=== PATIENT | female | born 1955 | race Caucasian/White ===

== ENCOUNTER 2017-09-06 07:43 | Observation (INO) ==
--- NOTE | 2017-09-06 07:51 | Emergency Department Note ---
Disposition Clinical Impression: Transient ischemic attack (TIA) Disposition: Admitted As Inpatient Condition: Good Referrals: Sanju Mcgarry DO [Primary Care Provider] - Forms: ED Satisfaction Letter Time of Disposition: 09:53 Neuro HPI - General Chief Complaint: ED Neuro Symptoms/Deficit Stated Complaint: left sided N/T Time Seen by Provider: 09/06/17 07:48 Source: patient, EMS Mode of arrival: EMS Limitations: no limitations Nursing Notes Reviewed: Yes Vital Signs Reviewed: Yes - History of Present Illness HPI Narrative: Nontoxic-appearing 61-year-old female with a history of hypertension and hyperlipidemia presents for evaluation of left-sided facial numbness, and numbness/tingling/weakness of the left upper and lower extremity. She also complains of being off balance when she walks. She states that she went to head at approximately 10:30 PM yesterday evening. She states that she awoke between 4:30 and 5:00 AM to use the restroom and felt fine. Upon her awakening again at 7:00 this morning, symptoms were noticeable. She denies any previous history of symptoms such as these. She denies any falls or trauma prior to symptom onset. She denies any visual field defects or disturbances. She denies any headache. She denies any other associated complaints. Onset of Symptoms Date: 09/06/17 Onset of Symptoms Time: 05:00 Symptom Onset Unknown: No Location: left face, left arm, left leg History of same: No Severity: mild Quality: weakness, numbness Symptoms Improving: No Improves with: none Worsens with: none Context: present upon awakening On Anticoagulants: No Associated symptoms: Reports: denies other symptoms Treatments Prior to Arrival: prehospital POC glucose - Related Data Home Medications: Home Medications Medication Instructions Recorded Confirmed Atorvastatin Calcium [Lipitor] 80 mg PO HS 09/06/17 09/06/17 Lisinopril [Zestril] 40 mg PO DAILY 09/06/17 09/06/17 Omeprazole [PriLOSEC] 20 mg PO DAILY 09/06/17 09/06/17 hydroCHLOROthiazide 12.5 mg PO DAILY 09/06/17 09/06/17 [Hydrochlorothiazide] Allergies/Adverse Reactions: Allergies Allergy/AdvReac Type Severity Reaction Status Date / Time diphenhydramine Allergy Rash Verified 09/06/17 08:51 [From Benadryl] Constitutional: Denies: fever, chills, weakness, weight change Eyes: Denies: eye pain, eye discharge, vision change ENT ED: Denies: ear pain, throat pain, dental pain, hearing loss, epistaxis, congestion, dysphagia Cardiovascular: Denies: chest pain, palpitations, dyspnea on exertion, edema, syncope Respiratory: Denies: cough, dyspnea, wheezes, hemoptysis, stridor Gastrointestinal: Denies: abdominal pain, nausea, vomiting, diarrhea, constipation, hematemesis, melena, hematochezia Genitourinary: Denies: dysuria, frequency, hematuria, discharge Musculoskeletal: Denies: back pain, neck pain, arthralgia, myalgia Integumentary: Denies: rash, abrasion, lesions Neurological: Reports: as per HPI, weakness, numbness. Denies: headache, paresthesias, confusion, abnormal gait, vertigo Psychiatric: Denies: anxiety, depression, suicidal thoughts, homicidal thoughts , auditory hallucinations, visual hallucinations Endocrine: Denies: fatigue Hematological/Lymphatic: Denies: easy bleeding, easy bruising Allergic/Immunologic: Denies: facial swelling, urticaria Past Medical History - Past Medical History Attestation: Yes The following information was validated with the patient. Source: patient, nursing notes reviewed Medical history: Reports: hyperlipidemia, hypertension Surgical history: Reports: no surgical history Psychiatric history: Reports: no psych history - Social History Smoking Status: Never smoker Alcohol use: Reports: none Drug use: Reports: none Physical Exam - General Limitations: no limitations General appearance: alert, in no apparent distress - Head Head exam: atraumatic, normocephalic, normal inspection - Eye Eye exam: Present: normal appearance, PERRL, EOMI. Absent: nystagmus - Neck Neck exam: Present: normal inspection, full ROM, trachea midline - Chest Chest inspection: Present: normal inspection, symmetric chest wall rise - Respiratory Respiratory exam: Present: normal lung sounds bilaterally. Absent: respiratory distress, wheezes, stridor, accessory muscle use, prolonged expiratory phase - Cardiovascular Cardiovascular exam: Present: regular rate, normal rhythm, normal heart sounds - Abdominal Exam Abdominal exam: Present: soft, Non-Tender, normal bowel sounds - Extremities Exam Extremities exam: Present: normal inspection, full ROM. Absent: tenderness, pedal edema - Neurological Exam Neurological exam: Present: alert, oriented X3 - Expanded Neurological Exam Patient oriented to: Present: person, place, time Speech: Present: fluid speech Cranial nerves: EOM function (II, III, IV, ): Normal, facial sensation (V): Abnormal Left, facial palsy (VII): Abnormal Left, spinal accessory function (XI) : Normal, tongue deviation (XII): Normal Cerebellar function: finger to nose: Abnormal Left Motor strength - LUE: 4/5 Motor strength - RUE: 5/5 Motor strength - LLE: 4/5 Motor strength - RLE: 5/5 Sensory exam lower extremity: light touch: Abnormal Left Coma Scale Eye Opening: Spontaneous Coma Scale Motor Response: Obeys Commands Coma Scale Verbal Response: Oriented Coma Scale Total: 15 - Psychiatric Psychiatric exam: Present: normal affect, normal mood - Skin Skin exam: Present: warm, dry, intact, normal color. Absent: rash Course Course Narrative: Dr. Otoole present at bedside on this patient's arrival by EMS. 0816: Dr. Up, neurologist with the [facility] has performed his tele-stroke examination. During the examination, the patient stated that her symptoms had improved. She stated that she was no longer feeling the numbness in the left side of her face nor the numbness/weakness in the left upper or lower extremity. The neurological exam showed no ataxia with the left upper or lower extremity. No drift with the left upper or lower extremity. Dr. Up states that the patient's symptoms are consistent with a probable transient ischemic event. He recommends no TPA administration. He recommends the patient be admitted to the hospitalist service for further workup for her TIA. 0840: Repeat NIH stroke scale score of 0 at this time. 0952: I spoke with Dr. Tomas , of the hospitalist service. Dr. Tomas has accepted the patient for admission for further evaluation and observation. Vital Signs Temperature 98.3 F 09/06/17 07:46 Pulse Rate 95 09/06/17 07:46 Respiratory Rate 18 09/06/17 07:46 Blood Pressure 184/117 09/06/17 07:46 O2 Sat by Pulse Oximetry 96 09/06/17 07:46 Temperature 98.3 F 09/06/17 07:46 Pulse Rate 84 09/06/17 09:36 Respiratory Rate 15 09/06/17 09:36 Blood Pressure 173/99 09/06/17 09:36 O2 Sat by Pulse Oximetry 98 09/06/17 09:36 Oxygen Delivery Oxygen Delivery Room Air Neuro Symptoms/Deficit - Medical Records Medical records reviewed: Yes I reviewed the patient's medical records. - Lab Data Lab results reviewed: Yes I reviewed the patient's lab results. Lab results narrative: Lab Results 09/06/17 09/06/17 09/06/17 Range/Units 07:50 07:50 07:50 WBC 6.1 (4.3-11.1) K/mcL RBC 4.58 (3.82-4.97) M/mcL Hgb 14.0 (11.5-15.4) g/dL Hct 40.2 (35.3-44.9) % MCV 87.8 (83.0-100.0) fL MCH 30.6 (28.0-33.3) pg MCHC 34.8 (31.6-35.5) g/dL RDW 14.4 (11.5-14.5) % Plt Count 211 (140-400) K/mcL MPV 9.9 (9.4-12.4) fL Immature Gran % 0.3 (0-4) % Seg Neutrophils % 48.6 % Lymphocytes % 39.3 % Monocytes % 7.4 % Eosinophils % 3.6 % Basophils % 0.8 % Neutrophils # 2.9 (1.6-8.9) K/mcL Lymphocytes # 2.4 (0.6-4.6) K/mcL Monocytes # 0.5 (0.0-1.3) K/mcL Eosinophils # 0.2 (0.0-0.6) K/mcL Basophils # 0.1 (0.0-0.2) K/mcL PT 9.9 (9.4-12.1) Seconds INR 0.9 APTT 28.6 (26.0-36.0) Seconds Troponin I < 0.03 (< 0.04) ng/mL Urine Color (Yellow) Urine Clarity (Clear) Urine pH (5.0-8.0) pH Units Ur Specific Declo (1.010-1.025) Urine Protein (Neg-Trace) mg/dL Urine Glucose (UA) (Normal) mg/dL Urine Ketones (Negative) mg/dL Urine Blood (Negative) Urine Nitrite (Negative) Urine Bilirubin (Negative) Urine Urobilinogen (Normal) mg/dL Ur Leukocyte Esterase (Negative) Ur Culture Indicated? (NO) 09/06/17 Range/Units 08:20 WBC (4.3-11.1) K/mcL RBC (3.82-4.97) M/mcL Hgb (11.5-15.4) g/dL Hct (35.3-44.9) % MCV (83.0-100.0) fL MCH (28.0-33.3) pg MCHC (31.6-35.5) g/dL RDW (11.5-14.5) % Plt Count (140-400) K/mcL MPV (9.4-12.4) fL Immature Gran % (0-4) % Seg Neutrophils % % Lymphocytes % % Monocytes % % Eosinophils % % Basophils % % Neutrophils # (1.6-8.9) K/mcL Lymphocytes # (0.6-4.6) K/mcL Monocytes # (0.0-1.3) K/mcL Eosinophils # (0.0-0.6) K/mcL Basophils # (0.0-0.2) K/mcL PT (9.4-12.1) Seconds INR APTT (26.0-36.0) Seconds Troponin I (< 0.04) ng/mL Urine Color Yellow (Yellow) Urine Clarity Clear (Clear) Urine pH 7.0 (5.0-8.0) pH Units Ur Specific Declo > 1.030 H (1.010-1.025) Urine Protein Negative (Neg-Trace) mg/dL Urine Glucose (UA) Normal (Normal) mg/dL Urine Ketones Negative (Negative) mg/dL Urine Blood Negative (Negative) Urine Nitrite Negative (Negative) Urine Bilirubin Negative (Negative) Urine Urobilinogen Normal (Normal) mg/dL Ur Leukocyte Esterase Negative (Negative) Ur Culture Indicated? NO (NO) Result diagrams: 09/06/17 07:50 09/06/17 07:50 Lab Results 09/06/17 09/06/17 09/06/17 Range/Units 07:50 07:50 07:50 WBC 6.1 (4.3-11.1) K/mcL RBC 4.58 (3.82-4.97) M/mcL Hgb 14.0 (11.5-15.4) g/dL Hct 40.2 (35.3-44.9) % MCV 87.8 (83.0-100.0) fL MCH 30.6 (28.0-33.3) pg MCHC 34.8 (31.6-35.5) g/dL RDW 14.4 (11.5-14.5) % Plt Count 211 (140-400) K/mcL MPV 9.9 (9.4-12.4) fL Immature Gran % 0.3 (0-4) % Seg Neutrophils % 48.6 % Lymphocytes % 39.3 % Monocytes % 7.4 % Eosinophils % 3.6 % Basophils % 0.8 % Neutrophils # 2.9 (1.6-8.9) K/mcL Lymphocytes # 2.4 (0.6-4.6) K/mcL Monocytes # 0.5 (0.0-1.3) K/mcL Eosinophils # 0.2 (0.0-0.6) K/mcL Basophils # 0.1 (0.0-0.2) K/mcL PT 9.9 (9.4-12.1) Seconds INR 0.9 APTT 28.6 (26.0-36.0) Seconds Sodium 140 (136-145) mEq/L Potassium 3.6 (3.5-5.1) mEq/L Chloride 104 (98-107) mEq/L Carbon Dioxide 25 (23-29) mEq/L BUN 14 (8-23) mg/dL Creatinine 0.88 (0.60-1.20) mg/dL Est GFR ( Amer) > 60 (> 60) Est GFR (Non-Af Amer) > 60 (> 60) BUN/Creatinine Ratio 16 (6-26) Glucose 134 H (70-105) mg/dL Calculated Osmolality 292 (280-300) Calcium 9.6 (8.6-10.3) mg/dL Troponin I < 0.03 (< 0.04) ng/mL Urine Color (Yellow) Urine Clarity (Clear) Urine pH (5.0-8.0) pH Units Ur Specific Declo (1.010-1.025) Urine Protein (Neg-Trace) mg/dL Urine Glucose (UA) (Normal) mg/dL Urine Ketones (Negative) mg/dL Urine Blood (Negative) Urine Nitrite (Negative) Urine Bilirubin (Negative) Urine Urobilinogen (Normal) mg/dL Ur Leukocyte Esterase (Negative) Ur Culture Indicated? (NO) 09/06/17 Range/Units 08:20 WBC (4.3-11.1) K/mcL RBC (3.82-4.97) M/mcL Hgb (11.5-15.4) g/dL Hct (35.3-44.9) % MCV (83.0-100.0) fL MCH (28.0-33.3) pg MCHC (31.6-35.5) g/dL RDW (11.5-14.5) % Plt Count (140-400) K/mcL MPV (9.4-12.4) fL Immature Gran % (0-4) % Seg Neutrophils % % Lymphocytes % % Monocytes % % Eosinophils % % Basophils % % Neutrophils # (1.6-8.9) K/mcL Lymphocytes # (0.6-4.6) K/mcL Monocytes # (0.0-1.3) K/mcL Eosinophils # (0.0-0.6) K/mcL Basophils # (0.0-0.2) K/mcL PT (9.4-12.1) Seconds INR APTT (26.0-36.0) Seconds Sodium (136-145) mEq/L Potassium (3.5-5.1) mEq/L Chloride (98-107) mEq/L Carbon Dioxide (23-29) mEq/L BUN (8-23) mg/dL Creatinine (0.60-1.20) mg/dL Est GFR ( Amer) (> 60) Est GFR (Non-Af Amer) (> 60) BUN/Creatinine Ratio (6-26) Glucose (70-105) mg/dL Calculated Osmolality (280-300) Calcium (8.6-10.3) mg/dL Troponin I (< 0.04) ng/mL Urine Color Yellow (Yellow) Urine Clarity Clear (Clear) Urine pH 7.0 (5.0-8.0) pH Units Ur Specific Declo > 1.030 H (1.010-1.025) Urine Protein Negative (Neg-Trace) mg/dL Urine Glucose (UA) Normal (Normal) mg/dL Urine Ketones Negative (Negative) mg/dL Urine Blood Negative (Negative) Urine Nitrite Negative (Negative) Urine Bilirubin Negative (Negative) Urine Urobilinogen Normal (Normal) mg/dL Ur Leukocyte Esterase Negative (Negative) Ur Culture Indicated? NO (NO) - Radiology Data Radiology results reviewed: Yes I reviewed the patient's radiology results. Head CT 09/06/17 07:48 IMPRESSION: No acute intracranial abnormality. D/ / Hood Mccormick MD / Hood Mccormick MD Interpreting Provider: Hood Mccormick MD Head CTA 09/06/17 07:52 IMPRESSION: Unremarkable CTA of the head and neck. D/ / 09/06/2017 09:16:03 Checo Hunter MD / [place] Interpreting Provider: Checo Hunter MD Neck CTA 09/06/17 07:52 IMPRESSION: Unremarkable CTA of the head and neck. D/ / 09/06/2017 09:16:03 Checo Hunter MD / [place] Interpreting Provider: Checo Hunter MD - EKG Data EKG attestation: Yes I reviewed and interpreted this EKG. EKG results narrative: EKG reviewed by Dr. Otoole as well. EKG shows a sinus rhythm with left ventricular hypertrophy at a rate of 84 bpm. MS interval 156, QRS duration 101 , QT/QTc interval 33/44. No ectopy noted. No ST elevation. No old EKG for comparison. NIH Stroke Scale - Level of Consciousness LOC: Alert - LOC Questions LOC Questions: Answers both correctly - LOC Commands LOC Commands: Performs both correctly - Best Gaze Best Gaze: Normal - Visual Visual: No visual loss - Facial Palsy Facial Palsy: Minor asymmetry on smiling, flattened nasolabial fold - Motor Arms Motor Arm-Left: Drift, does NOT hit bed Motor Arm-Right: No drift for 10 seconds - Motor Legs Motor Leg-Left: Drift, does NOT hit bed Motor Leg-Right: No drift for 5 seconds - Limb Ataxia Limb Ataxia: Present in ONE limb - Sensory Sensory: Mild to moderate loss, "not as sharp" - Best Language Best Language: No aphasia - Dysarthria Dysarthria: Normal - Extinction and Inattention Extinction and Inattention: Normal - NIHSS Total Score NIHSS Total Score: 5 TPA Checklist - LKW: 3-4.5 hrs Add. Warnings/Precautions Patient/family understanding: The patient/family members have been counseled and understood the risk, benefit , and alternatives of treatment.
[2017-09-06] MEDS ORDERED: Isovue-370 500 ML INFUS..BTL IV ONE (07:52)
--- NOTE | 2017-09-06 07:52 | Emergency Department Note ---
Disposition Clinical Impression: Transient ischemic attack (TIA) Disposition: Admitted As Inpatient Condition: Good General Adult HPI - General Chief complaint: ED Neuro Symptoms/Deficit Stated complaint: left sided N/T Time Seen by Provider: 09/06/17 07:48 - Related Data Home Medications Medication Instructions Recorded Confirmed Atorvastatin Calcium [Lipitor] 80 mg PO HS 09/06/17 09/06/17 Lisinopril [Zestril] 40 mg PO DAILY 09/06/17 09/06/17 Omeprazole [PriLOSEC] 20 mg PO DAILY 09/06/17 09/06/17 hydroCHLOROthiazide 12.5 mg PO DAILY 09/06/17 09/06/17 [Hydrochlorothiazide] Allergies Allergy/AdvReac Type Severity Reaction Status Date / Time diphenhydramine Allergy Rash Verified 09/06/17 08:51 [From Benadryl] Past Medical History - Past Medical History Medical history: Reports: hyperlipidemia, hypertension Surgical history: Reports: no surgical history Psychiatric history: Reports: no psych history - Social History Smoking Status: Never smoker Alcohol use: Reports: none Drug use: Reports: none Course Vital Signs Temperature 98.3 F 09/06/17 07:46 Pulse Rate 95 09/06/17 07:46 Respiratory Rate 18 09/06/17 07:46 Blood Pressure 184/117 09/06/17 07:46 O2 Sat by Pulse Oximetry 96 09/06/17 07:46 Temperature 98.4 F 09/06/17 16:00 Pulse Rate 84 09/06/17 16:00 Respiratory Rate 15 09/06/17 16:00 Blood Pressure 156/91 09/06/17 16:00 O2 Sat by Pulse Oximetry 93 09/06/17 15:53 Oxygen Delivery Oxygen Delivery Room Air Medical Decision Making - Lab Data Result diagrams: 09/06/17 07:50 09/06/17 07:50 Lab Results 09/06/17 09/06/17 09/06/17 Range/Units 07:46 07:50 07:50 WBC 6.1 (4.3-11.1) K/mcL RBC 4.58 (3.82-4.97) M/mcL Hgb 14.0 (11.5-15.4) g/dL Hct 40.2 (35.3-44.9) % MCV 87.8 (83.0-100.0) fL MCH 30.6 (28.0-33.3) pg MCHC 34.8 (31.6-35.5) g/dL RDW 14.4 (11.5-14.5) % Plt Count 211 (140-400) K/mcL MPV 9.9 (9.4-12.4) fL Immature Gran % 0.3 (0-4) % Seg Neutrophils % 48.6 % Lymphocytes % 39.3 % Monocytes % 7.4 % Eosinophils % 3.6 % Basophils % 0.8 % Neutrophils # 2.9 (1.6-8.9) K/mcL Lymphocytes # 2.4 (0.6-4.6) K/mcL Monocytes # 0.5 (0.0-1.3) K/mcL Eosinophils # 0.2 (0.0-0.6) K/mcL Basophils # 0.1 (0.0-0.2) K/mcL PT 9.9 (9.4-12.1) Seconds INR 0.9 APTT 28.6 (26.0-36.0) Seconds Sodium (136-145) mEq/L Potassium (3.5-5.1) mEq/L Chloride (98-107) mEq/L Carbon Dioxide (23-29) mEq/L BUN (8-23) mg/dL Creatinine (0.60-1.20) mg/dL Est GFR ( Amer) (> 60) Est GFR (Non-Af Amer) (> 60) BUN/Creatinine Ratio (6-26) Glucose (70-105) mg/dL POC Glucose 122 H (70-99) mg/dL Calculated Osmolality (280-300) Calcium (8.6-10.3) mg/dL Troponin I (< 0.04) ng/mL Urine Color (Yellow) Urine Clarity (Clear) Urine pH (5.0-8.0) pH Units Ur Specific Ste[place] (1.010-1.025) Urine Protein (Neg-Trace) mg/dL Urine Glucose (UA) (Normal) mg/dL Urine Ketones (Negative) mg/dL Urine Blood (Negative) Urine Nitrite (Negative) Urine Bilirubin (Negative) Urine Urobilinogen (Normal) mg/dL Ur Leukocyte Esterase (Negative) Ur Culture Indicated? (NO) 09/06/17 09/06/17 Range/Units 07:50 08:20 WBC (4.3-11.1) K/mcL RBC (3.82-4.97) M/mcL Hgb (11.5-15.4) g/dL Hct (35.3-44.9) % MCV (83.0-100.0) fL MCH (28.0-33.3) pg MCHC (31.6-35.5) g/dL RDW (11.5-14.5) % Plt Count (140-400) K/mcL MPV (9.4-12.4) fL Immature Gran % (0-4) % Seg Neutrophils % % Lymphocytes % % Monocytes % % Eosinophils % % Basophils % % Neutrophils # (1.6-8.9) K/mcL Lymphocytes # (0.6-4.6) K/mcL Monocytes # (0.0-1.3) K/mcL Eosinophils # (0.0-0.6) K/mcL Basophils # (0.0-0.2) K/mcL PT (9.4-12.1) Seconds INR APTT (26.0-36.0) Seconds Sodium 140 (136-145) mEq/L Potassium 3.6 (3.5-5.1) mEq/L Chloride 104 (98-107) mEq/L Carbon Dioxide 25 (23-29) mEq/L BUN 14 (8-23) mg/dL Creatinine 0.88 (0.60-1.20) mg/dL Est GFR ( Amer) > 60 (> 60) Est GFR (Non-Af Amer) > 60 (> 60) BUN/Creatinine Ratio 16 (6-26) Glucose 134 H (70-105) mg/dL POC Glucose (70-99) mg/dL Calculated Osmolality 292 (280-300) Calcium 9.6 (8.6-10.3) mg/dL Troponin I < 0.03 (< 0.04) ng/mL Urine Color Yellow (Yellow) Urine Clarity Clear (Clear) Urine pH 7.0 (5.0-8.0) pH Units Ur Specific Steger > 1.030 H (1.010-1.025) Urine Protein Negative (Neg-Trace) mg/dL Urine Glucose (UA) Normal (Normal) mg/dL Urine Ketones Negative (Negative) mg/dL Urine Blood Negative (Negative) Urine Nitrite Negative (Negative) Urine Bilirubin Negative (Negative) Urine Urobilinogen Normal (Normal) mg/dL Ur Leukocyte Esterase Negative (Negative) Ur Culture Indicated? NO (NO) Attestation Statement - Attestation Attestation: For this encounter, I have reviewed the CLINICAL REVIEW SPECIALIST or PA documentation, treatment plan, and medical decision making; and I have had face to face time with this patient. Patient presents to the ED with chief complaint of left-sided weakness and numbness. Patient awoke around 7 AM and noticed left side of her face felt numb. It is also involving the left arm. She says she woke up around 4:30 or 5 this morning and went to the bathroom and felt fine at that time. Denies any headache. States she feels off balance when she walks. No history of stroke. She does have hypertension and hypercholesterolemia. Patient has a left-sided facial droop and sensory discrepancies in the left arm and face. No ataxia. Negative pronator drift. Plan. Stroke alert was called. Patient's symptoms resolved prior to telestroke evaluation. She is a presumed TIA and will be admitted for appropriate workup. Head CT 09/06/17 07:48 IMPRESSION: No acute intracranial abnormality. D/ / Hood Mccormick MD / Hood Mccormick MD Interpreting Provider: Hood Mccormick MD Head CTA 09/06/17 07:52 IMPRESSION: Unremarkable CTA of the head and neck. D/ / 09/06/2017 09:16:03 Checo Hunter MD / [place] Interpreting Provider: Checo Hunter MD Neck CTA 09/06/17 07:52 IMPRESSION: Unremarkable CTA of the head and neck. D/ / 09/06/2017 09:16:03 Checo Hunter MD / [place] Interpreting Provider: Checo Hunter MD Brain MRI 09/06/17 09:53 IMPRESSION: Moderate chronic small vessel ischemic changes. There are no areas of restricted diffusion to suggest an acute ischemic event. Mild mucoperiosteal thickening of the ethmoid air cells and maxillary sinuses. D/ / 09/06/2017 11:52:46 Heather Jenkins MD / [place] Interpreting Provider: Heather Jenkins MD
[2017-09-06 07:58] LABS: Basophils # 0.1 K/mcL (0.0-0.2); Basophils % 0.8 %; Eosinophils # 0.2 K/mcL (0.0-0.6); Eosinophils % 3.6 %; Hematocrit 40.2 % (35.3-44.9); Immature Granulocytes % 0.3 % (0-4); Lymphocytes # 2.4 K/mcL (0.6-4.6); Lymphocytes % 39.3 %; Mean Corpuscular HGB Conc 34.8 g/dL (31.6-35.5); Mean Corpuscular Hemoglobin 30.6 pg (28.0-33.3); Mean Corpuscular Volume 87.8 fL (83.0-100.0); Mean Platelet Volume 9.9 fL (9.4-12.4); Monocytes # 0.5 K/mcL (0.0-1.3); Monocytes % 7.4 %; Neutrophils # 2.9 K/mcL (1.6-8.9); Platelet Count 211 K/mcL (140-400); Red Blood Count 4.58 M/mcL (3.82-4.97); Red Cell Distribution Width 14.4 % (11.5-14.5); Segmented Neutrophils % 48.6 %
[2017-09-06 08:08] LABS: INR 0.9; Prothrombin Time 9.9 Seconds (9.4-12.1)
[2017-09-06 08:11] LABS: Activated Partial Thrombo Time 28.6 Seconds (26.0-36.0)
[2017-09-06 08:16] LABS: Troponin I < 0.03 ng/mL (< 0.04)
[2017-09-06 08:40] LABS: Bilirubin,Urine Negative (Negative); Blood,Urine Negative (Negative); Clarity,Urine Clear (Clear); Color,Urine Yellow (Yellow); Glucose,Urine (UA) Normal (Normal); Ketones,Urine Negative (Negative); Leukocyte Esterase,Urine Negative (Negative); Nitrite,Urine Negative (Negative); Protein,Urine Negative (Neg-Trace); Specific Gravity,Urine > 1.030 (1.010-1.025); Urobilinogen,Urine Normal (Normal)
[2017-09-06 09:43] LABS: BUN/Creatinine Ratio 16 (6-26); Blood Urea Nitrogen 14 mg/dL (8-23); Calcium 9.6 mg/dL (8.6-10.3); Carbon Dioxide 25 mEq/L (23-29); Chloride 104 mEq/L (98-107); Glucose 134 mg/dL (70-105); Osmolality,Calculated 292 (280-300); Potassium 3.6 mEq/L (3.5-5.1); Sodium 140 mEq/L (136-145); eGFR For Non-African Americans > 60 (> 60)
--- NOTE | 2017-09-06 12:35 | Internal Med History&Physical ---
Date of Encounter: 09/06/17 Time of Encounter: 12:30 Internal Medicine - H&P: HPI Chief complaint: left sided weakness and numbness Admitted From: Home Plans for Post Hospital Care: Home History of present illness: Ms. Crenshaw is a 61 year old female with history of hypertension and hyperlipidemia presented to the ED with left-sided facial/extremity weakness, numbness. As per patient her symptoms started at 7 AM while she was having a bowel movement. While walking from the bathroom to her bedroom she felt as though she was leaning towards her left and she had mild weakness and numbness in her left leg and left arm along with tingling on the left side of her lip. She denies any speaking difficulty blurring of the vision headache at trauma recent falls, similar episodes in the past. Since her symptoms were new to her she decided to call EMS and was brought to the ED. Her symptoms resolved while she was in the ED. as per ED documentation: "0816: Dr. Up, neurologist with the [facility] has performed his tele-stroke examination. During the examination, the patient stated that her symptoms had improved. She stated that she was no longer feeling the numbness in the left side of her face nor the numbness/weakness in the left upper or lower extremity. The neurological exam showed no ataxia with the left upper or lower extremity. No drift with the left upper or lower extremity. Dr. Up states that the patient's symptoms are consistent with a probable transient ischemic event. He recommends no TPA administration. He recommends the patient be admitted to the hospitalist service for further workup for her TIA. 0840: Repeat NIH stroke scale score of 0 at this time." Currently she has no complaints her left-sided weakness/numbness resolved. She denies any fever chills, chest pain, shortness of breath, abdominal pain, dysuria or headache or vision problems. She is compliant with her hyper pressure medications. She is not taking any aspirin at home. She is independent with all her ADLs Past Med Surg Social Fam HX - Past Medical History Medical history: hyperlipidemia, hypertension Psychiatric history: no psych history - Past Surgical History Surgical History: no surgical history - Social History Smoking Status: Never smoker Smokeless Tobacco Status: No Alcohol use: none Drug use: none - Family History Father Living Status: Age at : 91 Hx Family Neurologic Disorders: (stroke) Internal Medicine - H&P: Meds Atorvastatin Calcium [Lipitor] 80 mg PO HS 09/06/17 [History] Lisinopril [Zestril] 40 mg PO DAILY 09/06/17 [History] RX: Omeprazole [PriLOSEC] 20 mg PO DAILY 09/06/17 [History] RX: hydroCHLOROthiazide [Hydrochlorothiazide] 12.5 mg PO DAILY 09/06/17 [History ] 3 Allergy/AdvReac Type Severity Reaction Status Date / Time diphenhydramine Allergy Rash Verified 09/06/17 08:51 [From Benadryl] All Systems PM: review of systems was performed and is negative for pertinent findings except as documented above in the HPI. - Constitutional Vitals: Temp Pulse Resp BP Pulse Ox 98.6 F 89 15 169/85 98 09/06/17 11:15 09/06/17 11:15 09/06/17 11:15 09/06/17 11:15 09/06/17 11:15 - Other Additional findings: Vital Signs Reviewed General: Patient is alert, oriented, no acute distress, obese Head: atraumatic, normocephalic, Eye: normal appearance, PERRL, no scleral icterus, no conjunctival injection ENT: mucous membranes moist, normal external ear exam Neck: normal inspection, trachea midline, full ROM, no carotid bruits Chest: normal inspection, symmetric chest rise Respiratory: Good respiratory effort. Bilateral breath sounds are clear without wheezing, crackles, or rhonchi. Cardiovascular: Regular rate and rhythm. No clicks, rubs, gallops, or murmors. Normal heart sounds. Abdomen: Bowel sounds present normoactive x-4 quadrants. Abdomen is soft, nondistended. Epigastric tenderness. No guarding or rebound. No organomegaly noted, obese Musculoskeletal: Spontaneously moving all extremities. Skin: warm, dry, intact. Neuro: Alert and oriented x4. Sensation light touch intact. Cranial nerves II- 12 is intact. Not aphasic, gait is steady, rapid hand movements intact, heel to szymanski intact, [id number] intact, Psych: Patient's affect is normal Internal Med - H&P Results - Labs CBC & Chem 7: 09/06/17 07:50 09/06/17 07:50 - EKG Data EKG shows normal: axis (LAD) Rate: normal - EKG Data EKG comments: LVH 09/06/17 12:40 - Assessment and plan (1) Transient ischemic attack (TIA) Current Visit: Yes Status: Acute Assessment and plan: No TPA as symptoms rapidly improved Telemetry monitoring ASA 81 mg daily Lipitor 80 mg daily Neurology consult -Neuro check q 4 hourly MRI/ CTA head and neck were performed results above 2D ECHO with bubble study Rehab/ PT Evaluation Speech / swallow evaluation Lipid panel, HbA1C, TSH Keep systolic BP <220 and diastolic BP <120 mmHg Maintain LDL less than 75 Fall, aspiration and seizure precautions elevate head of bed (2) Hypertension Current Visit: Yes Status: Acute Assessment and plan: We will continue home medications Qualifiers: Hypertension type: essential hypertension Qualified Code(s): I10 - Essential (primary) hypertension (3) Hyperlipidemia Current Visit: Yes Status: Acute Assessment and plan: We will send lipid panel Continue Lipitor 80 mg Qualifiers: Hyperlipidemia type: unspecified Qualified Code(s): E78.5 - Hyperlipidemia , unspecified (4) Obesity (BMI 30.0-34.9) Current Visit: Yes Status: Acute Assessment and plan: Nutrition consult Was counseled on diet and nutrition (5) DVT prophylaxis Current Visit: Yes Status: Acute Assessment and plan: heparin 5000 units SC Q8H - Time Spent With Patient Total time spent is greater than 50% in coordination of care (as documented) at patient's floor/unit and/or counseling patient:
[2017-09-06] MEDS ORDERED: Saline Nasal Spray 44 ML BOTTLE NS PRN (14:38)
[2017-09-06] MEDS: Aspirin 81 MG TAB.CHEW PO SCH (15:33)
[2017-09-06] MEDS: hydroCHLOROthiazide 25 MG TABLET PO SCH (15:33)
[2017-09-06] MEDS: *HR* Heparin 5,000 UNIT/ML VIAL SQ SCH ×2 (15:34→22:10)
[2017-09-06] MEDS: Lisinopril 20 MG TABLET PO SCH (15:34)
[2017-09-06 20:37] LABS: Amphetamine Screen,Urine Negative ng/mL (Cutoff=1000); Barbiturate Screen,Urine Negative ng/mL (Cutoff=200); Benzodiazepines Screen,Urine Negative ng/mL (Cutoff=200); Cannabinoid Screen,Urine Negative ng/mL (Cutoff = 50); Cocaine Screen,Urine Negative ng/mL (Cutoff= 300); Opiate Screen,Urine Negative ng/mL (Cutoff=300); Phencyclidine Screen,Urine Negative ng/mL (Cutoff=25)
--- NOTE | 2017-09-06 21:13 | Electrocardiograph Report ---
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
[2017-09-07 05:03] LABS: Basophils % 0.5 %; Eosinophils # 0.2 K/mcL (0.0-0.6); Eosinophils % 3.4 %; Hematocrit 38.1 % (35.3-44.9); Hemoglobin 13.1 g/dL (11.5-15.4); Immature Granulocytes % 0.5 % (0-4); Lymphocytes # 1.9 K/mcL (0.6-4.6); Lymphocytes % 29.2 %; Mean Corpuscular HGB Conc 34.4 g/dL (31.6-35.5); Mean Corpuscular Hemoglobin 30.6 pg (28.0-33.3); Mean Platelet Volume 10.4 fL (9.4-12.4); Monocytes # 0.5 K/mcL (0.0-1.3); Monocytes % 7.2 %; Neutrophils # 3.9 K/mcL (1.6-8.9); Platelet Count 217 K/mcL (140-400); Red Blood Count 4.28 M/mcL (3.82-4.97); Red Cell Distribution Width 14.6 % (11.5-14.5); Segmented Neutrophils % 59.2 %
[2017-09-07 05:13] LABS: INR 0.9; Prothrombin Time 10.6 Seconds (9.4-12.1)
[2017-09-07 05:27] LABS: Alanine Aminotransferase 18 Units/L (7-52); Albumin/Globulin Ratio 1.5 (1.1-2.2); Alkaline Phosphatase 64 Units/L (34-104); Aspartate Amino Transferase 11 Units/L (13-39); BUN/Creatinine Ratio 15 (6-26); Blood Urea Nitrogen 13 mg/dL (8-23); Calcium 9.2 mg/dL (8.6-10.3); Carbon Dioxide 26 mEq/L (23-29); Chloride 103 mEq/L (98-107); Chol/HDL Ratio 4.7 (0-4.9); Cholesterol 182 mg/dL (< 200); Globulin 2.6 g/dL (2.4-3.5); Glucose 122 mg/dL (70-105); HDL Cholesterol 39 mg/dL (40-59); LDL Cholesterol,Calculated 100 mg/dL (0-99); Osmolality,Calculated 291 (280-300); Potassium 3.3 mEq/L (3.5-5.1); Sodium 140 mEq/L (136-145); Total Protein 6.6 g/dL (6.4-8.9); Triglycerides 217 mg/dL (< 150); eGFR For Non-African Americans > 60 (> 60)
[2017-09-07 05:38] LABS: Thyroid Stimulating Hormone 8.518 mcIU/mL (0.340-5.600)
[2017-09-07] MEDS: *HR* Heparin 5,000 UNIT/ML VIAL SQ SCH (06:19)
[2017-09-07] MEDS: Aspirin 81 MG TAB.CHEW PO SCH (08:17)
[2017-09-07] MEDS: hydroCHLOROthiazide 25 MG TABLET PO SCH (08:17)
[2017-09-07] MEDS: Lisinopril 20 MG TABLET PO SCH (08:18)
[2017-09-07 08:54] LABS: Estimated Average Glucose 117 mg/dl; Hemoglobin A1C 5.7 %
[2017-09-07 12:20] VITALS: BP 133/80
--- NOTE | 2017-09-07 12:53 | Neurology - Consult Note ---
Date of Encounter: 09/07/17 Time of Encounter: 12:51 Assessment and Plan (1) TIA (transient ischemic attack) Current Visit: Yes Status: Acute Patient with HTN hyperlipidemia obesity who developed transient left facial and limb numbness paresthesia lasting 2 hours with resolution. stroke/TIA work up is negative except echocardiography which is completed and result pending. Continue aspirin 81mg daily and statin therapy. Management BP. May benefit from outpatient sleep study to assess possible obstructive sleep apnea. History of Present Illness Chief complaint: left facial arm numbness HPI: Ms. Crenshaw is a 61 year old female with PMH significant for who developed acute onset of facial and left arm numbness lasting about 2 hours in duration. Symptoms started yesterday morning and by the time she arrived to the ER her symptoms started improving. She was determined not to be a tPA thrombolysis candidate due to rapid improvement of neurological status. Initial CT of head showed no acute intracranial abnormality. MRI of brain showed no acute intracranial abnormality. CTA of neck and brain showed no significant abnormality. Patient is kept on Aspirin 81mg daily. Symptoms essentially resolved at this time Past Med Surg Social Fam HX - Past Medical History Medical history: hyperlipidemia, hypertension Psychiatric history: no psych history - Past Surgical History Surgical History: no surgical history - Social History Smoking Status: Never smoker Smokeless Tobacco Status: No Alcohol use: none Drug use: none - Family History Father Living Status: Age at : 91 Hx Family Neurologic Disorders: (stroke) Medications and Allergies RX: Atorvastatin Calcium [Lipitor] 80 mg PO HS 09/06/17 [History] RX: Lisinopril [Zestril] 40 mg PO DAILY 09/06/17 [History] RX: Omeprazole [PriLOSEC] 20 mg PO DAILY 09/06/17 [History] RX: hydroCHLOROthiazide [Hydrochlorothiazide] 12.5 mg PO DAILY 09/06/17 [History ] RX: Aspirin 81 mg PO DAILY #30 tab.chew 09/07/17 [Rx] RX: amLODIPine [Norvasc] 5 mg PO DAILY #30 tablet 09/07/17 [Rx] 3 Allergy/AdvReac Type Severity Reaction Status Date / Time diphenhydramine Allergy Rash Verified 09/06/17 08:51 [From Benadryl] All Systems: The remainder of the systems were reviewed and are negative Physical Examination - Vital Signs Vital Signs: Initial Vital Signs Temp Pulse Resp BP Pulse Ox 98.3 F 95 18 184/117 96 09/06/17 07:46 09/06/17 07:46 09/06/17 07:46 09/06/17 07:46 09/06/17 07:46 - Constitutional General appearance: comfortable - Neurologic Detailed motor examination: full strength in all major muscle groups Motor examination - right side: 06/17: deltoids, biceps, triceps, wrist flexion, wrist extension, distribution sales representative, hip flexors, tibialis Anterior, quadriceps, toe extension (EHL), plantarflexion Motor examination - left side: 06/17: deltoids, biceps, triceps, wrist flexion, wrist extension, hip flexors, distribution sales representative, quadriceps, tibialis Anterior, toe extension (EHL), plantarflexion Detailed sensory examination: intact Posture: other (NOne) Reflex and gait examination: intact Reflexes: Biceps: 2+, Triceps: 2+, Brachioradialis: 2+, Patella: 2+, Achilles: 2 + Mental Status Examination: awake, alert, oriented to person, oriented to place, oriented to time, follows commands appropriately, answers questions appropriately, no agnosia, no aphasia, no aproxia Cranial nerve examination: PERRL, EOMI, visual mcgarry intact, corneal reflexes brisk symmetrically, sensory to face intact, mastication intact, no facial asymmetry is present, no dysarthria, hearing is intact symmetrically, soft palate elevates bilaterally upon phonation, gag reflex intact, flexes SCM and trapezius muscles symmetrically with full power, tongue protrudes midline, no atrophy or facial fasiculations present Cerebellar examination: no dysmetria, performs finger to nose and heel to szymanski symmetrically without ataxia, no gait ataxia, no truncal ataxia, no difficulty with rapid alternating movements Results - Laboratory Findings CBC and BMP: 09/07/17 03:51 09/07/17 03:51 Abnormal lab findings: Abnormal lab results RDW 14.6 % (11.5-14.5) H 09/07/17 03:51 Potassium 3.3 mEq/L (3.5-5.1) L 09/07/17 03:51 Glucose 122 mg/dL (70-105) H 09/07/17 03:51 POC Glucose 122 mg/dL (70-99) H 09/06/17 07:46 Hemoglobin A1c 5.7 % (-5.6) H 09/07/17 03:51 AST 11 Units/L (13-39) L 09/07/17 03:51 Triglycerides 217 mg/dL (< 150) H 09/07/17 03:51 LDL Cholesterol, Calc 100 mg/dL (0-99) H 09/07/17 03:51 VLDL Cholesterol, Calc 43 mg/dL (< 31) H 09/07/17 03:51 HDL Cholesterol 39 mg/dL (40-59) L 09/07/17 03:51 TSH 8.518 mcIU/mL (0.340-5.600) H 09/07/17 03:51 Ur Specific [place] > 1.030 (1.010-1.025) H 09/06/17 08:20 - Diagnostic Findings Additional findings: MRI OF THE BRAIN WITHOUT CONTRAST 09/06/2017 10:57 am TECHNIQUE: Multiplanar multisequence MRI of the brain was performed without the administration of intravenous contrast. COMPARISON: None HISTORY: ORDERING SYSTEM PROVIDED HISTORY: neuro symptoms Additional tech notes: ER-10, CFS@09-R Episode of left facial numbness. Left arm and leg numbness and weakness. Initial evaluation. FINDINGS: INTRACRANIAL STRUCTURES/VENTRICLES: There is no acute infarct. The ventricles and cisternal spaces are normal in size, shape, and configuration for the age of the patient. There are several punctate areas of high-signal in the periventricular white matter and centrum semiovale that are likely related to chronic small vessel ischemic disease. There is no midline shift or mass effect. There are no areas of restricted diffusion. ORBITS: The visualized portion of the orbits demonstrate no acute abnormality. SINUSES: There is mild mucoperiosteal thickening of the ethmoid air cells and maxillary sinuses. The remainder of the sinuses are clear. The mastoid air cells are clear. BONES/SOFT TISSUES: The bone marrow signal intensity appears normal. The soft tissues demonstrate no acute abnormality. MR/MR head/brain wo con IMPRESSION: Moderate chronic small vessel ischemic changes. There are no areas of restricted diffusion to suggest an acute ischemic event. Mild mucoperiosteal thickening of the ethmoid air cells and maxillary sinuses. D/ / 09/06/2017 11:52:46 Heather Jenkins MD / [place] Interpreting Provider: Heather Jenkins MD OF THE NECK; CTA OF THE HEAD WITHOUT AND WITH CONTRAST 09/06/2017 8:29 am; 09/06/2017 8:30 am: TECHNIQUE: CTA of the neck was performed with the administration of intravenous contrast. Multiplanar reformatted images are provided for review. MIP images are provided for review. Stenosis of the internal carotid arteries measured using NASCET criteria. Dose modulation, iterative reconstruction, and/or weight based adjustment of the mA/kV was utilized to reduce the radiation dose to as low as reasonably achievable.; CTA of the head/brain was performed without and with the administration of intravenous contrast. Multiplanar reformatted images are provided for review. MIP images are provided for review. Dose modulation, iterative reconstruction, and/or weight based adjustment of the mA/kV was utilized to reduce the radiation dose to as low as reasonably achievable. COMPARISON: Head CT without contrast 09/06/2017 HISTORY: ORDERING SYSTEM PROVIDED HISTORY: stroke symptoms FINDINGS: CTA NECK: AORTIC ARCH/ARCH VESSELS: There is a normal branch pattern of the aortic arch. No significant stenosis is seen of the innominate artery or subclavian arteries. Mild noncalcified atherosclerotic plaque in the proximal left subclavian artery. CAROTID ARTERIES: The common carotid arteries are without flow limiting stenosis. The internal carotid arteries are without flow limiting stenosis by NASCET criteria. No dissection or arterial injury is seen. VERTEBRAL ARTERIES: The vertebral arteries both arise from the subclavian arteries and are without flow limiting stenosis or dissection. SOFT TISSUES: The lung apices are clear. No cervical or superior mediastinal lymphadenopathy. The visualized portion of the larynx and pharynx appear unremarkable. The parotid, submandibular and thyroid glands demonstrate no acute abnormality. BONES: Moderate degenerative disc disease at C6-C7. CTA HEAD: ANTERIOR CIRCULATION: The internal carotid arteries are normal in course and caliber without focal stenosis. The anterior cerebral and middle cerebral arteries demonstrate no focal stenosis. POSTERIOR CIRCULATION: The posterior cerebral arteries demonstrate no focal stenosis. The vertebral and basilar arteries appear unremarkable. BRAIN: No mass effect or midline shift. No abnormal extra-axial fluid collection. The alcala-white differentiation appears grossly maintained. CT/CT angio head IMPRESSION: Unremarkable CTA of the head and neck. D/ / 09/06/2017 09:16:03 Checo Hunter MD / [place] Interpreting Provider: Checo Hunter MD Consult Discharge Plan - Plan Instructions: Aspirin (By mouth), Hypertension (DC) Referrals: Sanju Mcgarry DO [Primary Care Provider] - (Please call for follow-up appointment within 1-2 weeks. It is recommended for you to have a repeat basic metabolic panel to reassess potassium level.) Prescriptions: RX: amLODIPine [Norvasc] 5 mg PO DAILY #30 tablet RX: Aspirin 81 mg PO DAILY #30 tab.chew
--- NOTE | 2017-09-07 13:08 | Discharge Summary ---
- NOTES TO OUTPATIENT PROVIDER Notes to Outpatient Provider: Recommend routine hospital follow-up within 1-2 weeks. Also recommend repeat BMP to follow-up with hypokalemia Date of Encounter: 09/07/17 Time of Encounter: 13:06 - Discharge Diagnosis (1) Paresthesia of left arm and leg Priority: Primary Status: Acute (2) Hypertension Priority: Primary Status: Acute Qualifiers: Hypertension type: essential hypertension Qualified Code(s): I10 - Essential (primary) hypertension (3) Obesity (BMI 30.0-34.9) Priority: Primary Status: Acute (4) Hyperlipidemia Priority: Primary Status: Acute Qualifiers: Hyperlipidemia type: unspecified Qualified Code(s): E78.5 - Hyperlipidemia , unspecified Hospital course: Ms. Crenshaw is a 61 year old female with H eye protection hyperlipidemia presented to [facility] on 09/06/17 with complaints of numbness and tingling to left sided mouth, left arm and left leg. She is placed in observation status for further workup and treatment. Patient's hospital course included an unremarkable head CT without contrast. Head/neck CTA unremarkable. Brain MRI negative for acute infarct or ischemia. She was evaluated by neurology who suspected symptoms were secondary to uncontrolled blood pressure. Personally discussed case with Dr. Salmon (Neurology) and he did not suspect TIA; recommended risk factor modification and starting ASA 81 mg daily. Patient's symptoms resolved at time of discharge and she returned to baseline. Her BP was uncontrolled during hospitalization and was discharged home on home ACEI, HCTZ and low-dose amlodipine added. She was discharged home in stable condition with outpatient follow-up. Discharge discussed with: patient (Seen and examined at bedside. Patient is new to me, information obtained from chart review and patient report. Patient said she feels better and is back to baseline. Would like to go home today if possible. No recurrence of paresthesia to left sided face arm or leg. No headache or visual disturbances. No weakness extremity. No slurred speech or facial droop. Advised on importance of weight management, glycemic control and BP control. Verbalized understanding.) - Time Spent with Patient Total time spent providing and/or coordinating discharge services: - Discharge Medications Prescriptions: amLODIPine [Norvasc] 5 mg PO DAILY #30 tablet Aspirin 81 mg PO DAILY #30 tab.chew Home Medications: Atorvastatin Calcium [Lipitor] 80 mg PO HS 09/06/17 [History] Lisinopril [Zestril] 40 mg PO DAILY 09/06/17 [History] Omeprazole [PriLOSEC] 20 mg PO DAILY 09/06/17 [History] hydroCHLOROthiazide [Hydrochlorothiazide] 12.5 mg PO DAILY 09/06/17 [History] Aspirin 81 mg PO DAILY #30 tab.chew 09/07/17 [Rx] amLODIPine [Norvasc] 5 mg PO DAILY #30 tablet 09/07/17 [Rx] Allergies/Adverse Reactions: 3 Allergy/AdvReac Type Severity Reaction Status Date / Time diphenhydramine Allergy Rash Verified 09/06/17 08:51 [From Benadryl] Date of admission: 09/06/17 10:05 Primary care physician: Sanju Mcgarry DO Consults: 09/06/17 12:46 Consult to Neurology [CONS] Routine Consulting Provider: Neurology [facility] Reason for Consult: tia/ Call Completed: No Consult to Occupational Therapy [CONS] Routine Comment: Evaluate, develop and implement POC Reason for Consult: tia Does patient have active BEDREST order?: No Is patient medically & hemodynamically stable?: Yes Patient assessed for mobility or mobilized this visit?: Yes Consult to Physical Therapy [CONS] Routine Comment: Evaluate, develop and implement POC Reason for Consult: tia/ stroke Does patient have active BEDREST order?: No Is patient medically & hemodynamically stable?: Yes Patient assessed for mobility or mobilized this visit?: Yes Discharging clinician: Flores Tidwell Anticipated date of discharge: 09/07/17 - Constitutional Vitals: Temp Pulse Resp BP Pulse Ox 98.0 F 74 18 133/80 98 09/07/17 12:19 09/07/17 12:19 09/07/17 12:19 09/07/17 12:19 09/07/17 12:19 General appearance: Present: A&O X 3, pleasant, no acute distress - Head Head exam: Present: atraumatic, normocephalic - Eye Eye exam: Present: PERRL, conjuntiva pink, sclera anicteric Pupils: Present: PERRL - Neck Neck exam general surgery: Present: supple, trachea midline. Absent: lymphadenopathy - Respiratory Respiratory exam: Present: CTAB. Absent: accessory muscle use, rales, rhonchi, wheezes - Cardiovascular Cardiovascular exam: Present: RRR, +S1, +S2. Absent: diastolic murmur, gallop, rubs, systolic murmur - GI/Abdominal GI/Abdominal exam: Present: normal bowel sounds, soft, no peritoneal signs. Absent: distended, tenderness - Extremities Exam Extremities exam: Present: warm, radial pulses palpable and symmetrical. Absent : calf tenderness, cyanotic, pedal edema - Neurological Exam Neurological exam: Present: CN II-XII intact, oriented X3, no focal deficits. Absent: pronater drift, facial droop, speech deficit - Skin Skin exam: Present: dry, intact - Patient Status Disposition: Home, Self-Care Condition: Good Functional capacity at discharge: independent ambulation Overall status at discharge: patient is back to baseline - Discharge Instructions Instructions: Hypertension (DC), Aspirin (By mouth) Follow Up With: Sanju Mcgarry DO [Primary Care Provider] - (Please call for follow-up appointment within 1-2 weeks. It is recommended for you to have a repeat basic metabolic panel to reassess potassium level.) - Diet and Activity Activity: increase activity as tolerated Diet: low fat, low cholesterol, low salt diet
== END 2017-09-07 15:53 | disposition home or self-care (01) ==
LOC: 3BNU 07:43 → EMEROO 07:43 → 3BNU 10:40
PROVIDERS: ADMIT Internal Medicine; ATTEND Internal Medicine